=== PATIENT | male | born 1965 | race Caucasian/White ===

== ENCOUNTER 2018-04-18 08:08 | Emergency (ER) | payer BC ==
--- NOTE | 2018-04-18 08:17 | ER Report ---
History and Physical Time Seen By MD: 08:17 HPI/ROS 53-year-old 3 diabetic male presents to the emergency department with an acute worsening of pain and redness in his right lower extremity. He lives in [place], but is in [place] on a hunting trip. He 1st noted pain in his right lower extremity approximately 4 days ago. He said the pain felt like a bruise. Last night he noticed erythema in his right lower extremity. States he has a his tory of a septic knee, so wanted to take care of what appeared to be an infection before it spread. He denies fever chills. He is able to ambulate with minimal pain. No joint swelling or pain. No pain or swelling in his scrotum. No trauma. Allergies: Coded Allergies: morphine (Verified Adverse Reaction, Mild, "I GET MEAN", 04/18/18) Home Meds Active Scripts Sulfamethoxazole/Trimet 800-160 Mg Tab (BACTRIM DS TABLET) 1 Each Tablet, 1 TAB PO Q12H for 10 Days, #20 TAB Prov:MICHEAL GREENWOOD MD 04/18/18 Cephalexin 500 Mg Tab (KEFLEX 500 MG TAB) 500 Mg Tablet, 500 MG PO Q12H for 10 Days, #20 TAB Prov:MICHEAL GREENWOOD MD 04/18/18 Reported Medications Multivitamin With Minerals (MULTIPLE VITAMIN) 1 Each Tablet, 1 EACH PO, TAB 04/18/18 Potassium Gluconate (POTASSIUM) 99 Mg Tablet, 99 MG PO 04/18/18 Spironolactone (ALDACTONE) 25 Mg Tablet, 25 MG PO QDAY 04/18/18 Furosemide (LASIX) 20 Mg Tablet, 1 TAB PO Q8H, TAB 04/18/18 Sotalol Hcl (SOTALOL) 80 Mg Tab, 80 MG FT, TAB 04/18/18 Irbesartan (IRBESARTAN) 75 Mg Tablet, 75 MG PO QDAY 04/18/18 Amiodarone Hcl (AMIODARONE HCL) 200 Mg Tablet, 1.25 MG PO BID 04/18/18 Reviewed Nurses Notes: Yes Old Medical Records Reviewed: Yes Hx Smoking: No Smoking Status: Never Smoker Exposure to Second Hand Smoke?: No Hx Substance Use Disorder: No Hx Alcohol Use: Yes Constitutional Vital Sign - Last 24 Hours 04/18/18 04/18/18 04/18/18 04/18/18 08:08 08:14 08:15 08:23 Temp 98.2 Pulse ??? 84 82 Resp 18 B/P (MAP) 117/69 117/69 (85) Pulse Ox 92 93 O2 Delivery Room Air 04/18/18 04/18/18 04/18/18 04/18/18 08:38 08:48 08:53 09:00 Pulse 83 77 B/P (MAP) 136/75 (95) 121/90 (100) Pulse Ox 93 94 04/18/18 04/18/18 04/18/18 04/18/18 09:08 09:23 09:28 09:30 Pulse 73 76 75 B/P (MAP) 120/66 (84) Pulse Ox 91 93 96 04/18/18 04/18/18 04/18/18 04/18/18 09:43 09:58 10:00 10:13 Pulse 86 78 77 B/P (MAP) 129/62 (84) Pulse Ox 95 95 94 04/18/18 04/18/18 10:28 10:29 Temp 98.7 Pulse ??? Physical Exam General Appearance: The patient is alert, has no immediate need for airway protection and no current signs of toxicity. Eyes: Pupils equal and round no injection. Respiratory: Chest is non tender, lungs are clear to auscultation. Cardiac: regular rate and rhythm Gastrointestinal: Abdomen is soft and non tender, no masses, bowel sounds normal. Extremities have full range of motion, there is mild tenderness to palpation of the right lower extremity below the knee. No pain out of proportion. Skin: Erythema and warmth at the right LE below the knee. DIFFERENTIAL DIAGNOSIS: After history and physical exam differential diagnosis was considered for cellulitis, DVT, necrotizing fasciitis Medical Decision Making Data Points Result Diagram: 04/18/1890404/18/18904 Laboratory Hematology Test 04/18/18 09:05 Red Blood Count 3.46 M/uL (4.00-5.60) Mean Corpuscular Volume 107.8 fL (80.0-96.0) Mean Corpuscular Hemoglobin 37.6 pg (26.0-33.0) Mean Corpuscular Hemoglobin Concent 34.9 g/dL (32.0-36.0) Red Cell Distribution Width 14.4 % (11.5-14.5) Mean Platelet Volume 8.0 fL (7.2-11.1) Neutrophils (%) (Auto) 82.9 % (39.4-72.5) Lymphocytes (%) (Auto) 10.2 % (17.6-49.6) Monocytes (%) (Auto) 6.4 % (4.1-12.4) Eosinophils (%) (Auto) 0.2 % (0.4-6.7) Basophils (%) (Auto) 0.3 % (0.3-1.4) Nucleated RBC Relative Count (auto) 0.0 /100WBC Neutrophils # (Auto) 9.0 K/uL (2.0-7.4) Lymphocytes # (Auto) 1.1 K/uL (1.3-3.6) Monocytes # (Auto) 0.7 K/uL (0.3-1.0) Eosinophils # (Auto) 0.0 K/uL (0.0-0.5) Basophils # (Auto) 0.0 K/uL (0.0-0.1) Nucleated RBC Absolute Count (auto) 0.00 K/uL Sodium Level 134 mmol/L (137-145) Potassium Level 4.4 mmol/L (3.5-5.0) Chloride Level 100 mmol/L (98-107) Carbon Dioxide Level 26 mmol/L (22-30) Blood Urea Nitrogen 22 mg/dl (9-21) Creatinine 1.00 mg/dl (0.66-1.25) Glomerular Filtration Rate Calc > 60.0 Random Glucose 209 mg/dl (75-110) Calcium Level 8.9 mg/dl (8.4-10.2) Total Bilirubin 0.4 mg/dl (0.2-1.3) Aspartate Amino Transf (AST/SGOT) 91 U/L (0-35) Alanine Aminotransferase (ALT/SGPT) 196 U/L (0-56) Alkaline Phosphatase 52 U/L (0-126) Total Protein 7.2 g/dl (6.3-8.2) Albumin 3.9 g/dl (3.5-5.0) Chemistry Test 04/18/18 09:05 White Blood Count 10.8 k/uL (4.5-11.0) Red Blood Count 3.46 M/uL (4.00-5.60) Hemoglobin 13.0 g/dL (14.0-18.0) Hematocrit 37.3 % (42.0-52.0) Mean Corpuscular Volume 107.8 fL (80.0-96.0) Mean Corpuscular Hemoglobin 37.6 pg (26.0-33.0) Mean Corpuscular Hemoglobin Concent 34.9 g/dL (32.0-36.0) Red Cell Distribution Width 14.4 % (11.5-14.5) Platelet Count 170 K/uL (150-450) Mean Platelet Volume 8.0 fL (7.2-11.1) Neutrophils (%) (Auto) 82.9 % (39.4-72.5) Lymphocytes (%) (Auto) 10.2 % (17.6-49.6) Monocytes (%) (Auto) 6.4 % (4.1-12.4) Eosinophils (%) (Auto) 0.2 % (0.4-6.7) Basophils (%) (Auto) 0.3 % (0.3-1.4) Nucleated RBC Relative Count (auto) 0.0 /100WBC Neutrophils # (Auto) 9.0 K/uL (2.0-7.4) Lymphocytes # (Auto) 1.1 K/uL (1.3-3.6) Monocytes # (Auto) 0.7 K/uL (0.3-1.0) Eosinophils # (Auto) 0.0 K/uL (0.0-0.5) Basophils # (Auto) 0.0 K/uL (0.0-0.1) Nucleated RBC Absolute Count (auto) 0.00 K/uL Glomerular Filtration Rate Calc > 60.0 Calcium Level 8.9 mg/dl (8.4-10.2) Total Bilirubin 0.4 mg/dl (0.2-1.3) Aspartate Amino Transf (AST/SGOT) 91 U/L (0-35) Alanine Aminotransferase (ALT/SGPT) 196 U/L (0-56) Alkaline Phosphatase 52 U/L (0-126) Total Protein 7.2 g/dl (6.3-8.2) Albumin 3.9 g/dl (3.5-5.0) ED Course/Re-evaluation ED Course 53-year-old male with a warm, erythematous, and mildly painful right lower extremity. In spite of him traveling, I do not think this is consistent with a DVT. It is clearly a cellulitis. There is no joint pain, erythema, or swelling. He has a history of a staph infection of his right knee. Looking at his lab data, I do think that he likely has diabetes although he has not been diagnosed. I gave him a dose of vancomycin in the emergency department. I also gave him a prescription for Keflex and Bactrim. He is going to leave [place] today and drive back to [place]. I recommended that he drive to [facility] and spend the night tonight. I recommended if the cellulitis is worse tomorrow, there is a hospital in [place] where he can receive treatment. Decision to Disposition Date: Apr 18, 2018 Decision to Disposition Time: 09:39 Depart Departure Latest Vital Signs Vital Signs Date Time Temp Pulse Resp B/P (MAP) Pulse Ox O2 Delivery O2 Flow Rate FiO2 04/18/18 10:29 98.7 04/18/18 10:28 ??? 04/18/18 10:13 94 04/18/18 10:00 129/62 (84) 04/18/18 08:14 18 Room Air Impression: Primary Impression: Cellulitis of anterior lower leg Condition: Improved Disposition: HOME OR SELF-CARE New Scripts Sulfamethoxazole/Trimet 800-160 Mg Tab (BACTRIM DS TABLET) 1 Each Tablet 1 TAB PO Q12H for 10 Days, #20 TAB Prov: MICHEAL GREENWOOD MD 04/18/18 Cephalexin 500 Mg Tab (KEFLEX 500 MG TAB) 500 Mg Tablet 500 MG PO Q12H for 10 Days, #20 TAB Prov: MICHEAL GREENWOOD MD 04/18/18 Patient Instructions: Cellulitis (ED) Additional Instructions: If you're infection is spreading to check tomorrow morning, please go to your nearest emergency department for treatment with IV antibiotics. MICHEAL GREENWOOD MD Apr 18, 2018 08:17
[2018-04-18] MEDS ORDERED: SPIR25TA76 PO (08:43)
[2018-04-18] MEDS ORDERED: AMIO200T49 PO (08:43)
[2018-04-18] MEDS ORDERED: POTA99TA6 PO (08:43)
[2018-04-18] MEDS ORDERED: MULT-1335 PO (08:43)
[2018-04-18] MEDS ORDERED: SOT80 FT (08:43)
[2018-04-18] MEDS ORDERED: FURO20TA19 PO (08:43)
[2018-04-18] MEDS ORDERED: IRBE75TA10 PO (08:43)
[2018-04-18] MEDS ORDERED: VANCOMYCIN 1 GM ADDVIAL 1 GM in NS(*) 0.9% 250 ML ADDVAN BAG 250 ML IVPB ONE (08:50)
[2018-04-18] MEDS ORDERED: NS(*) 0.9% 1000 ML BAG 1,000 ML IV ONE (08:50)
[2018-04-18 09:14] LABS: PLATELET COUNT, AUTOMATED 170 K/uL (150-450)
[2018-04-18] MEDS ORDERED: CEPH500T7 PO (09:41)
[2018-04-18] MEDS ORDERED: SULF-198 PO (09:41)
[2018-04-18 10:00] VITALS: BP 129/62
== END 2018-04-18 10:33 | disposition home or self-care (01) ==
LOC: ER 08:14
DX: L03.115 Cellulitis of right lower limb (principal)
CPT/HCPCS: 36415; 85025; 96365; 99283; J3370; J7030; J7050; 82040; 82247; 82310; 82374; 82435; 82565; 82947; 84075; 84132; 84155; 84295; 84450; 84460; 84520